=== PATIENT | male | born 1940 | race Caucasian/White ===

== ENCOUNTER → 2017-03-18 | Outpatient (CLI) | payer OTHER, MEDICARE | LOC: FIMAGING 12:59 | PROVIDERS: ATTEND Orthopaedic Surgery | DX: M17.12 Unilateral primary osteoarthritis, left knee (principal) ==

== ENCOUNTER 2017-04-09 10:21 | Observation (INO) | payer OTHER, MEDICARE ==
[~2017-04-09 10:21] MED LIST: ROPIVACAINE 0.2% 80 MG, EPINEPHrine 0.2 MG, KETOROLAC TROMETHAMINE 30 MG in BAG 0 ML IU ONE; TRANEXAMIC ACID 3,000 MG in NS 50 ML IRR ONE; TRANEXAMIC ACID 3,000 MG/50 ML BAG IRR ONE; VANCOMYCIN 1 GM VIAL ONE
[2017-04-09] MEDS ORDERED: DEXAMETHASONE 4 MG/ML VIAL IVP ONE (10:39)
[2017-04-09] MEDS ORDERED: FAMOTIDINE 20 MG TAB PO ONE (10:39)
[2017-04-09] MEDS ORDERED: ceFAZolin 2 GM/DEXTROSE 100 ML IV ONE (10:39)
[2017-04-09] MEDS ORDERED: ACETAMINOPHEN 325 MG TAB PO ONE (10:39)
[2017-04-09] MEDS ORDERED: LR 1,000 ML IV ONE (10:57)
--- NOTE | 2017-04-09 11:40 | PDHPUP ---
History & Physical Update H&P update statement: This history and physical update is based on an assessment of the patient which was completed after admission or registration (within 24 hours), but prior to the surgery/procedure. H&P update: H&P reviewed & patient examined, no change in patient's condition since H&P completed
[2017-04-09] MEDS ORDERED: MIDAZOLAM 2 MG/2 ML VIAL IVP ONE (13:25)
[2017-04-09] MEDS ORDERED: MIDAZOLAM 2 MG/2 ML VIAL ONE (13:27)
--- NOTE | 2017-04-09 13:29 | PDANEPAE ---
ANE History of Present Illness tka ANE Past Medical History - Cardiovascular History Hx Hypertension: Yes Hx Arrhythmias: No Hx Chest Pain: No Hx Coronary Artery / Peripheral Vascular Disease: Yes Hx CHF / Valvular Disease: No Hx Palpitations: No - Pulmonary History Hx COPD: No Hx Asthma/Reactive Airway Disease: No Hx Recent Upper Respiratory Infection: No Hx Oxygen in Use at Home: No Hx Sleep Apnea: Yes Sleep Apnea Screening Result - Last Documented: Positive Pulmonary History Comment: MASTER PREV C-PAP USEAGE UNABLE TO TOLERATE HAS NOT USED SINCE 2003 - Neurologic History Hx Cerebrovascular Accident: No Hx Seizures: No Hx Dementia: No - Endocrine History Hx Diabetes: No - Renal History Hx Renal Disorders: Yes Renal History Comment: BPH - Liver History Hx Hepatic Disorders: No - Neurological & Psychiatric Hx Hx Neurological and Psychiatric Disorders: Yes Neurological / Psychiatric History Comment: MIGRAINES WEEKLY - Cancer History Hx Cancer: No - Congenital Disorder History Hx Congenital Disorders: No - GI History Hx Gastrointestinal Disorders: No - Other Health History Other Health History: AORTIC ANEURSYM. FATIQUE ISSUE FOR 20 YRS. DDD. RT ROTATOR CUFF ISSUES IN THE PAST - Chronic Pain History Chronic Pain: Yes (LT KNEE) - Surgical History Prior Surgeries: ANTONIO CATARACT MOST RECENT 01/2017. LT KNEE SCOPE 2005. TONSILLECTOMY. APPENDECTOMY ANE Review of Systems - Exercise capacity METS (RN): 5 METS ANE Patient History - Allergies Allergies/Adverse Reactions: No Known Allergies Allergy (Verified 07/08/16 10:17) - Home Medications Home Medications: Multivitamins [Multivitamin (*)] 1 each PO DAILY 05/02/11 [Last Taken Unknown] Lisinopril [Zestril 10 mg (*)] 10 mg PO DAILY 01/19/16 [Last Taken Unknown] Acetaminophen [Tylenol ES 500 mg (*)] 1,000 mg PO DAILY 03/17/17 [Last Taken Unknown] Glucosamine/Chondroitin [Glucosamine/Chondroitin (*)] 2 each PO DAILY 03/17/17 [ Last Taken Unknown] Naproxen Sodium [Aleve 220 MG (*)] 220 mg PO DAILY PRN 03/17/17 [Last Taken Unknown] [place]-3 Fatty Acids [Fish Oil 1000 mg (*)] 1,000 mg PO DAILY 03/17/17 [Last Taken Unknown] - NPO status NPO Status: no food or drink >8 hours NPO Since - Liquids (Date): 04/09/17 NPO Since - Liquids (Time): 07:15 NPO Since - Solids (Date): 04/08/17 NPO Since - Solids (Time): 20:00 - Anes Hx Anes Hx: no prior problems - Smoking Hx Smoking Status: Never smoked ANE Labs/Vital Signs - Vital Signs Blood Pressure: 150/98 Heart Rate: 63 Respiratory Rate: 16 O2 Sat (%): 95 Height: 172.72 cm Weight: 90.718 kg ANE Physical Exam - Airway Mallampati Score: Class 2 Mouth exam: normal dental/mouth exam - Pulmonary Pulmonary: no respiratory distress - Cardiovascular Cardiovascular: regular rate and rhythym - ASA Status ASA Status: II ANE Anesthesia Plan Anesthesia Plan: spinal Regional Anesthesia: adductor canal FNB
[2017-04-09] MEDS ORDERED: PROPOFOL/EMULSION 500 MG/50 ML BOTTLE IV ONE (13:34)
[2017-04-09] MEDS ORDERED: LIDOCAINE 2% 5 ML SDV ONE (13:34)
[2017-04-09] MEDS ORDERED: NALOXONE HCL 0.4 MG/ML INJ IVP PRN (14:06)
[2017-04-09] MEDS ORDERED: fentaNYL 100 MCG/2 ML INJ IVP PRN (14:06)
[2017-04-09] MEDS ORDERED: ONDANSETRON 4 MG/2 ML VIAL IVP PRN ×2 (14:06→14:52)
[2017-04-09] MEDS ORDERED: MEPERIDINE 25 MG/ML SYR IVP PRN (14:06)
[2017-04-09] MEDS ORDERED: HYDROmorphONE/DILAUDID 1 MG/ML SYR IVP PRN (14:06)
[2017-04-09] MEDS ORDERED: ROPIVACAINE HCL 150 MG/30 ML INJ ONE (14:33)
[2017-04-09] MEDS ORDERED: PROMETHAZINE HCL 25 MG SUPPR PR PRN (14:52)
[2017-04-09] MEDS ORDERED: METOCLOPRAMIDE 10 MG/2 ML VIAL IVP PRN (14:52)
[2017-04-09] MEDS ORDERED: TEMAZEPAM 15 MG CAP PO PRN (14:52)
[2017-04-09] MEDS ORDERED: ONDANSETRON DISINTEGRATING 4 MG TAB PO PRN (14:52)
[2017-04-09] MEDS ORDERED: PROMETHAZINE HCL 25 MG/ML INJ IVP PRN (14:52)
[2017-04-09] MEDS ORDERED: CYCLOBENZAPRINE 10 MG TAB PO PRN (14:52)
[2017-04-09] MEDS ORDERED: diphenhydrAMINE 25 MG CAP PO PRN (14:52)
[2017-04-09] MEDS ORDERED: DIPHENOXYLATE/ATROPINE LOMOTIL 1 TAB PO PRN (14:52)
[2017-04-09] MEDS ORDERED: BISACODYL 10 MG SUPP PR PRN (14:52)
[2017-04-09] MEDS ORDERED: MAGNESIUM HYDROXIDE 30 ML UDCUP PO PRN (14:52)
[2017-04-09] MEDS ORDERED: POLYETHYLENE GLYCOL 3350 17 GM PKT PO PRN (14:52)
[2017-04-09] MEDS ORDERED: oxyCODONE IR 5 MG TAB PO PRN (14:52)
[2017-04-09] MEDS ORDERED: LACTULOSE 20 GM/30 ML UDCUP PO PRN (14:52)
--- NOTE | 2017-04-09 14:52 | POSTOPPROG ---
Post Op Note Date of Operation: 04/09/17 Surgeon: Alix Bajwa Dust Sampler: kiel delong Anesthesiologist: jenny Anesthesia: IV Sedation, Spinal Pre-op Diagnosis: L knee medial compartment OA Post-op Diagnosis: L knee medial compartment OA Indication: failed conservative therapies Procedure: L knee partial medial compartment arthroplasty, robot assisted Inf/Abcess present in the surg proc area at time of surgery?: No EBL: 50-100
[2017-04-09] MEDS ORDERED: LR 1,000 ML IV SCH (15:00)
--- NOTE | 2017-04-09 15:11 | POSTANESTH ---
Post Anesthetic Evaluation Cardiovascular Status: Normal, Stable Respiratory Status: Normal, Stable Level of Consciousness/Mental Status: Can Participate in Eval Pain Control: Adequate, Prn Tx Ordered Nausea/Vomiting Control: Adequate, Prn Tx Ordered Complications Possibly Related to Anesthesia: None Noted
[2017-04-09] MEDS: ACETAMINOPHEN 325 MG TAB PO SCH (18:30)
[2017-04-09] MEDS: ASPIRIN 325 MG TAB PO SCH (21:22)
[2017-04-09] MEDS: SENNOSIDES/DOCUSATE SODIUM TAB PO SCH (21:23)
[2017-04-09] MEDS: ceFAZolin 2 GM/DEXTROSE 100 ML IV SCH (21:23)
[2017-04-09] MEDS: FAMOTIDINE 20 MG TAB PO SCH (21:23)
[2017-04-10] MEDS: ACETAMINOPHEN 325 MG TAB PO SCH ×3 (00:47→16:25)
[2017-04-10 04:36] VITALS: BP 139/81; PULSE 67
[2017-04-10 05:17] LABS: HEMATOCRIT 42.6 % (40.0-51.0); HEMOGLOBIN 14.5 g/dL (13.7-17.5)
[2017-04-10] MEDS: ceFAZolin 2 GM/DEXTROSE 100 ML IV SCH (06:01)
--- NOTE | 2017-04-10 08:01 | SOAPPROG ---
SOAP Progress Note Assessment/Plan: Assessment: Patient is doing well POD 1 s/p L PKA, medial anay. Pain management: pain is well controlled on oral pain meds. VTE ppx: recommend aspirin daily for 3 weeks, cont TAM and SCDs Anemia: level is expected initially postop. Asymptomatic. Continue to monitor D/c planning: d/c to home today pending release from PT Plan: 04/10/17 07:59 Objective: Vital Signs Temp Pulse Resp BP Pulse Ox 36.9 C 67 16 139/81 H 93 04/10/17 04:36 04/10/17 04:36 04/10/17 04:36 04/10/17 04:36 04/10/17 04:36 Laboratory Results 04/10/17 04:18 04/09/17 04/10/17 04/11/17 05:59 05:59 05:59 Intake Total 650 Output Total 300 Balance 350 ICD10 Worksheet Patient Problems: Problems Problem Status Onset Osteoarthritis of knee, unilateral Acute - ICD10 Problem Qualifiers (1) Osteoarthritis of knee, unilateral
[2017-04-10] MEDS: ASPIRIN 325 MG TAB PO SCH (08:41)
[2017-04-10] MEDS: SENNOSIDES/DOCUSATE SODIUM TAB PO SCH (08:41)
[2017-04-10] MEDS: FAMOTIDINE 20 MG TAB PO SCH (08:42)
[2017-04-10] MEDS ORDERED: LISINOPRIL 10 MG TAB PO SCH (09:00)
[2017-04-10 09:34] VITALS: RESP 14; TEMP 103.3; O2SAT 94
--- NOTE | 2017-04-10 13:24 | GOP ---
[f rep st] OPERATIVE REPORT DATE OF OPERATION: 04/09/2017 SURGEON: Valdo Bajwa MD RN SANE: Antoni Fuller, MONIQUE ANESTHESIA: Spinal. PREOPERATIVE DIAGNOSIS: Left knee osteoarthritis. POSTOPERATIVE DIAGNOSIS: Left knee osteoarthritis. PROCEDURE PERFORMED: Left medial compartment partial knee replacement with computer navigation and robotic assist. FINDINGS: Severe medial compartment osteoarthritis. ESTIMATED BLOOD LOSS: 30 cc. INDICATIONS: This is a 77-year-old male with progressive pain of the left knee unresponsive to cons ervative care. Risks and benefits of surgical intervention were explained in detail. DESCRIPTION OF PROCEDURE: The patient was brought to the operating room and placed on the table in supine position. Spinal anesthesia was induced without difficulty. A pneumatic tourniquet was appl ied about the left proximal thigh and the leg was prepped and draped in sterile fashion. Attention was turned first to the distal aspect of the left femur. At 3 cm proximal to the lateral rise of th e femur, 2 percutaneous half pins were placed for fixation of the femoral array. In a similar fashi on, 2 pins were placed anterolateral on the tibia for fixation of the tibial array. External land m arking and registration of the hip center was performed without difficulty. After exsanguination by elevation, the tourniquet was inflated to 250 mmHg. Incision was made from the tibial tuberosity to the superior pole of the patella. Dissection was ca rried out through the subcutaneous tissue to the deep fascia using Bovie electrocautery for hemostas is. Medial parapatellar arthrotomy was carried out to the superior pole of the patella. The medial collateral ligament was elevated and the infrapatellar fat pad was resected. Internal femoral and tibial registration was carried out without difficulty and the femoral and tibial checkpoints were p laced and verified for accuracy. Attention was turned to the femur. The foot print for the size left femoral component was cut with the 6 mm bur using the [employer] robotic system and verified for accuracy against the CT based plan. The hole was cut for the femoral post. In a similar fashion, the 6 mm bur was used to cut the foot print for the size 6 tibial component using the [employer] system and verified for accuracy against the CT based plan. Attention was turned to the posterior aspect of the knee and remnants of the medial meniscus were ex cised. The posterior capsule was injected with ropivacaine, epinephrine and Toradol. Trial reducti on was carried out and there was excellent range of motion, alignment and stability using the size 6 femoral component and the size 6 tibial component, 6 x 8 mm polyethylene. All trials were then removed. The joint was thoroughly irrigated and carefully dried. One package of cement and 1 gram of vancomycin were mixed in the vacuum mixer and placed on the fixation surface s of all components. The components were implanted and all excess cement was thoroughly removed. Im plant placement was verified against the CT view plan and found to be excellent. The tourniquet was deflated and all bleeders were coagulated. The wound was thoroughly irrigated an d closed using interrupted sutures of 2-0 Vicryl for the joint capsule. The subcu was closed with 3 -0 Vicryl and the skin with 4-0 Monocryl. Dermabond and Steri-Strips were applied, followed by a co mpressive dressing. The patient was then moved from the operating room to the recovery room in good condition, having tolerated the procedure well. CASE CLASSIFICATION: Clean. /[id number]/MODL
--- NOTE | 2017-04-14 04:11 | GDS ---
[f rep st] DISCHARGE SUMMARY ADMISSION DIAGNOSIS: Left knee medial compartment osteoarthritis. DISCHARGE DIAGNOSIS: Left knee medial compartment osteoarthritis. PROCEDURE: Partial left knee medial arthroplasty, robot-assisted. VTE PROPHYLAXIS: Full strength aspirin x21 days. BRIEF DESCRIPTION OF HOSPITAL STAY: Patient was admitted for an elective joint arthroplasty. The p atient tolerated the procedure well and has passed physical therapy. The patient was given appropri ate antibiotic prophylaxis and venous thromboembolism prophylaxis. The patient's pain was well cont rolled on oral pain medication, patient was holding down food, and had urinated. Decision was made to discharge the patient. The patient was given post-operative prescriptions pre-operatively. PLAN: Please follow up with Dr. Bajwa as scheduled on May 01. /[id number]/MODL
== END 2017-04-10 12:02 | disposition home or self-care (01) ==
LOC: INTOOBSV 10:21 → F3E 10:21 → F3N 16:05
PROVIDERS: ADMIT Orthopaedic Surgery; ATTEND Orthopaedic Surgery
PROC: 0SRD0JZ Replacement of Left Knee Joint with Synthetic Substitute, Open Approach (ICD-10-PCS; principal; 2017-04-09 13:15)
PROC: 8E0YXBZ Computer Assisted Procedure of Lower Extremity (ICD-10-PCS; principal; 2017-04-09 13:15)
DX: M17.12 Unilateral primary osteoarthritis, left knee (principal); M25.562 Pain in left knee
CPT/HCPCS: 20985; 27446; 73560; 97161; 97165; G8978; G8979; G8980; G8987; G8988; G8989; J0171; J0690; J1100; J1885; J2250; J2704; J2795; J3370; C1713

== ENCOUNTER → 2017-12-11 | Outpatient (CLI) | payer OTHER, MEDICARE | LOC: FCPNEURO 20:00 | PROVIDERS: ATTEND Psychiatry & Neurology Sleep Medicine | DX: G47.33 Obstructive sleep apnea (adult) (pediatric) (principal); G47.37 Central sleep apnea in conditions classified elsewhere; G47.39 Other sleep apnea ==